=== PATIENT | male | born 1955 | race Caucasian/White ===

== ENCOUNTER 2022-02-13 18:56 | Inpatient (IN) | payer BC ==
[~2022-02-13] VITALS: Ht 180.3 cm; Wt 109.0 kg
[2022-02-13 19:01] VITALS: BP_SYST 150
--- NOTE | 2022-02-13 19:01 | NUR ---
Placed in room 04 . Placed on night monitor, blood pressure machine and pulse oximeter. To gown for exam. Side rails up. Report given to VIVIANE WASHINGTON
--- NOTE | 2022-02-13 19:04 | NUR ---
EKG being done at bedside.
--- NOTE | 2022-02-13 19:06 | NUR ---
PT CAME FROM HOME WITH C/O PALPITATIONS. PT DENIES CHEST PAIN, STATES THAT HE FEELS A FATIGUE FEELING IN THE MIDDLE OF HIS CHEST. STATES THAT WITH MOVEMENT HE FEELS THE FATIGUE AND IT STOPS WITH REST. PT STATES HISTORY OF TACHYCARDIA. A&O X 4, AMBULATORY, AND FOLLOWS COMMANDS. SAFETY PRECAUTIONS ARE IN PLACE.
--- NOTE | 2022-02-13 19:06 | NUR ---
is at bedside with patient.
[2022-02-13] MEDS ORDERED: LOSA25TA3 PO (19:18)
[2022-02-13] MEDS ORDERED: ROSU20TA2 PO (19:18)
[2022-02-13] MEDS ORDERED: ATEN-41 PO (19:18)
--- NOTE | 2022-02-13 20:04 | NUR ---
X-ray being done at bedside.
[2022-02-13 20:18] LABS: BASOPHILS # (AUTO) 0.2 K/uL (0.0-0.2); BASOPHILS % (AUTO) 1.7 % (0.0-2.0); EOSINOPHILS # (AUTO) 0.2 K/uL (0.0-0.4); HEMATOCRIT 44.9 % (36-54); HEMOGLOBIN 14.6 g/dL (14.0-18.0); LYMPHOCYTES # (AUTO) 1.3 K/uL (1.0-5.5); LYMPHOCYTES % (AUTO) 12.5 % (20.5-51.5); MEAN CORPUSCULAR HEMOGLOBIN 25 pg (27-31); MEAN CORPUSCULAR HGB CONC 33 % (32-36); MEAN CORPUSCULAR VOLUME 77 fL (79.0-98.0); MONOCYTES # (AUTO) 1.1 K/uL (0.0-1.0); MONOCYTES % (AUTO) 11.1 % (1.7-9.3); NEUTROPHILS # (AUTO) 7.3 K/uL (1.8-7.7); NEUTROPHILS % (AUTO) 72.7 % (40.0-70.0); PLATELET COUNT (AUTO) 231 K/uL (130-430); RED BLOOD CELL COUNT(AUTO) 5.81 MIL/uL (4.2-6.2); RED CELL DISTRIBUTION WIDTH 18.4 % (9.0-15.0)
[2022-02-13 20:22] LABS: ANION GAP 7 (5-15); CALCIUM 8.8 mg/dL (8.4-11.0); CHLORIDE 102 mmol/L (98-107); CREATININE 1.12 mg/dL (0.55-1.30); GLUCOSE 138 mg/dL (70-99); POTASSIUM 4.2 mmol/L (3.5-5.1); SODIUM SERUM 141 mmol/L (136-145); UREA NITROGEN, BLOOD 21 mg/dL (8-21)
[2022-02-13 20:23] LABS: GFR AFRICAN AMERICAN 85 mL/min (>90)
[2022-02-13 20:37] LABS: ALANINE AMINOTRANSFERASE 30 U/L (12-78); ALBUMIN 3.3 g/dL (3.4-4.8); ASPARTATE AMINOTRANSFERASE 17 U/L (10-37); FREE T4 (FREE THYROXINE) 0.9 ng/dl (0.8-1.5); THYROID STIMULATING HORMONE 1.61 uIu/mL (0.36-3.74)
[2022-02-13 20:49] LABS: TOTAL BILIRUBIN 0.3 mg/dL (0.0-1.0)
--- NOTE | 2022-02-13 21:10 | NUR ---
Medication reconciliation completed with information provided by PATIENT. Any prior medication reconciliation on file was reviewed and corrected.
--- NOTE | 2022-02-13 21:13 | NUR ---
PATIENT STATES HE IS FULL CODE
--- NOTE | 2022-02-13 22:26 | NUR ---
Admit bed requested Patient will be admitted to care of . Admitted to TELEMETRY unit. Diagnosis ATRIAL FIBRILLATION Inpatient (Yes or No) YES Observation (Yes or No) NO Orientation concerns or request close to nursing station (Yes or No) NO Covid Status NEG On vent or bipap N/A Isolation requirements N/A Needs a sitter N From Home (Yes or if No enter name of facility) HOME Requires Dialysis (Yes or No) NO Med Rec Completed (Yes of No) YES
--- NOTE | 2022-02-14 00:07 | NUR ---
Patient will be admitted to care of DR HALLMAN. Admitted to unit. Will go to room . Belongings list completed. Complete and up to date summary report printed. SBAR report to be given at bedside with opportunity for questions.
[2022-02-14 00:15] VITALS: BP_SYST 121
[2022-02-14] MEDS ORDERED: MELATONIN 5 MG TABLET PO ONE ×2 (02:00→02:17)
[2022-02-14 07:30] VITALS: BP_SYST 122
--- NOTE | 2022-02-14 07:30 | NUR ---
Opening Notes Patient is sitting up in bed. A/O x4. No apparent distress noted. Vitals as charted. Breakfast tray provided. Call light within reach. Safety and fall precautions in place. All needs met.
--- NOTE | 2022-02-14 10:00 | NUR ---
Note Patient is concerned about his blood pressure medication. I told him I would speak with his doctor.
--- NOTE | 2022-02-14 10:15 | NUR ---
Note Mentioned to Dr. Marrero patient's concern over his BP medication. Dr. Marrero will complete rounds with patient.
[2022-02-14] MEDS ORDERED: HYDROcodone/ACETAMIN 5-325 MG TAB (NORCO/ VICODIN) PO PRN (11:00)
[2022-02-14] MEDS ORDERED: HYDROcodone/ACETAMIN 10-325 MG TAB PO PRN (11:00)
[2022-02-14] MEDS ORDERED: LORazepam 2 MG/ML VIAL IVP PRN (11:00)
[2022-02-14] MEDS ORDERED: NALOXONE HCL 0.4 MG/ML AMP (NARCAN) IVP PRN ×2 (11:00)
[2022-02-14] MEDS ORDERED: ACETAMINOPHEN 325 MG TABLET PO PRN (11:00)
[2022-02-14] MEDS ORDERED: ONDANSETRON HCL 4 MG/2 ML VIAL IVP PRN (11:00)
[2022-02-14] MEDS ORDERED: LOSARTAN POTASSIUM 25 MG TABLET PO ONE (11:15)
[2022-02-14] MEDS ORDERED: ATENOLOL 25 MG TABLET(TENORMIN) PO ONE (11:30)
[2022-02-14 12:00] VITALS: BP_SYST 120
[2022-02-14] MEDS: NORMAL SALINE 5 ML DISP.SYRIN IVF SCH ×2 (13:12→21:29)
[2022-02-14] MEDS ORDERED: NORMAL SALINE 5 ML DISP.SYRIN IVF SCH (14:00)
[2022-02-14 16:00] VITALS: BP_SYST 127
--- NOTE | 2022-02-14 18:45 | NUR ---
Paged Dr. Benito Marrero Paged Dr. Marrero, patient is requesting sleep medication other than melatonin.
--- NOTE | 2022-02-14 18:50 | NUR ---
Note Received order from dr. sanchez as documented for patient's sleep medication.
[2022-02-14] MEDS ORDERED: traZODone HCL 50 MG TABLET (DESYREL) PO PRN (19:00)
--- NOTE | 2022-02-14 19:02 | NUR ---
Closing Note Patient is sitting up in bed awake. No apparent distress noted. Call light within reach. Safety and fall precautions in place. All needs jaspal. Will endorse care to slot shift supervisor RN.
[2022-02-14 20:00] VITALS: BP_SYST 128
[2022-02-14] MEDS ORDERED: ATORVASTATIN 20 MG TABLET PO SCH (21:00)
[2022-02-14] MEDS ORDERED: MELATONIN 5 MG TABLET PO SCH (21:00)
[2022-02-15 01:00] VITALS: BP_SYST 135
--- NOTE | 2022-02-15 01:56 | NUR ---
Desyrel 50 MG po given for sleep aide & helpful per patient Request .
--- NOTE | 2022-02-15 01:57 | NUR ---
HOURLY rounding patient resting using the urinal as needed call calle given to patient chest movement symmetrical unlabored .
[2022-02-15] MEDS: NORMAL SALINE 5 ML DISP.SYRIN IVF SCH (05:44)
[2022-02-15 06:26] LABS: BASOPHILS # (AUTO) 0.1 K/uL (0.0-0.2); BASOPHILS % (AUTO) 0.8 % (0.0-2.0); EOSINOPHILS # (AUTO) 0.3 K/uL (0.0-0.4); EOSINOPHILS % (AUTO) 3.3 % (0.0-4.0); HEMATOCRIT 44.3 % (36-54); LYMPHOCYTES % (AUTO) 25.2 % (20.5-51.5); MEAN CORPUSCULAR HEMOGLOBIN 25 pg (27-31); MEAN CORPUSCULAR HGB CONC 32 % (32-36); MEAN CORPUSCULAR VOLUME 78 fL (79.0-98.0); MONOCYTES # (AUTO) 1.2 K/uL (0.0-1.0); MONOCYTES % (AUTO) 15.8 % (1.7-9.3); NEUTROPHILS # (AUTO) 4.3 K/uL (1.8-7.7); NEUTROPHILS % (AUTO) 54.9 % (40.0-70.0); PLATELET COUNT (AUTO) 239 K/uL (130-430); RED BLOOD CELL COUNT(AUTO) 5.71 MIL/uL (4.2-6.2); WHITE BLOOD COUNT (AUTO) 7.8 K/uL (4.8-10.8)
[2022-02-15 06:49] LABS: ALBUMIN 3.1 g/dL (3.4-4.8); CALCIUM 8.3 mg/dL (8.4-11.0); CREATININE 0.99 mg/dL (0.55-1.30); PHOSPHORUS 3.7 mg/dL (2.7-4.5); POTASSIUM 3.9 mmol/L (3.5-5.1); TOTAL BILIRUBIN 0.1 mg/dL (0.0-1.0)
--- NOTE | 2022-02-15 07:00 | NUR ---
OPENING NOTE RECEIVED SBAR BY NIGHT RN, PATIENT IN BED, AWAKE, ALERT, ORIENTED X4. IV LEFT FOREARM IS SL.
[2022-02-15 08:22] VITALS: BP_SYST 135
--- NOTE | 2022-02-15 08:30 | NUR ---
CLEARED BY CARDIOLOGY SPOKE TO DR RUDDY HALLMAN AND CLEARED THE PATIENT TO GO HOME. SAW PATIENT LAST NIGHT.
[2022-02-15] MEDS ORDERED: LOSARTAN POTASSIUM 25 MG TABLET PO SCH (09:00)
[2022-02-15] MEDS ORDERED: ATENOLOL 25 MG TABLET(TENORMIN) PO SCH (09:00)
[2022-02-15 10:50] VITALS: BP_SYST 127; BP_SYST 135
[2022-02-15 11:07] VITALS: BP_SYST 127
--- NOTE | 2022-02-15 12:41 | NUR ---
D/C Patient Patient given medication reconciliation form and D/C instructions. Exit Care provided. Patient verbalized understanding. MD discussed with patient the results and treatment provided. Ambulatory with steady gait for discharge to home. Patient in stable condition, ID band removed. IV catheter removed, intact and dressing applied, no active bleeding. Rx of given. Patient educated on pain management. All belongings sent with patient. Patient steady to walk, accompanied outside the lobby.
== END 2022-02-15 12:41 | disposition home health service (06) | DRG 309 ==
LOC: SED 18:56 → STU 22:25
PROVIDERS: ADMIT Preventive Medicine Preventive Medicine/Occupational Environmental Medicine; ATTEND Preventive Medicine Preventive Medicine/Occupational Environmental Medicine
DX: I48.91 Unspecified atrial fibrillation (principal); E44.0 Moderate protein-calorie malnutrition; K21.9 Gastro-esophageal reflux disease without esophagitis; E78.5 Hyperlipidemia, unspecified; E83.52 Hypercalcemia; E88.09 Other disorders of plasma-protein metabolism, not elsewhere classified; R73.9 Hyperglycemia, unspecified; Z20.822 Contact with and (suspected) exposure to COVID-19
CPT/HCPCS: 36415; 71045; 80053; 83735; 83880; 84100; 84439; 84443; 84484; 85025; 93005; 93306; 99285; G0378

== ENCOUNTER 2023-06-18 08:54 | Inpatient (IN) | payer BC, OTHER ==
[~2023-06-18] VITALS: Ht 180.3 cm; Wt 104.3 kg
[~2023-06-18 08:54] MED LIST: ATEN-41 PO
[2023-06-18 08:57] VITALS: BP_SYST 128; PULSE 59; RESP 18; TEMP 98.3; O2SAT 97
[2023-06-18] MEDS ORDERED: dilTIAZem HCL IVP 5 MG/ML VIAL IVP ONE (09:15)
[2023-06-18] MEDS ORDERED: DILTIAZEM HCL 60 MG TABLET PO ONE (09:15)
[2023-06-18 09:29] LABS: BASOPHILS % (AUTO) 0.6 % (0.0-2.0); EOSINOPHILS # (AUTO) 0.1 K/uL (0.0-0.4); EOSINOPHILS % (AUTO) 1.3 % (0.0-4.0); HEMATOCRIT 49.6 % (36-54); LYMPHOCYTES # (AUTO) 1.2 K/uL (1.0-5.5); LYMPHOCYTES % (AUTO) 16.5 % (20.5-51.5); MEAN CORPUSCULAR HEMOGLOBIN 24 pg (27-31); MEAN CORPUSCULAR HGB CONC 30 % (32-36); MEAN CORPUSCULAR VOLUME 78 fL (79.0-98.0); MONOCYTES # (AUTO) 0.9 K/uL (0.0-1.0); MONOCYTES % (AUTO) 13.3 % (1.7-9.3); NEUTROPHILS # (AUTO) 4.8 K/uL (1.8-7.7); NEUTROPHILS % (AUTO) 68.3 % (40.0-70.0); PLATELET COUNT (AUTO) 245 K/uL (130-430); RED BLOOD CELL COUNT(AUTO) 6.35 MIL/uL (4.2-6.2); WHITE BLOOD COUNT (AUTO) 7.1 K/uL (4.8-10.8)
[2023-06-18 09:45] LABS: PROTHROMBIN TIME 10.8 SECS (9.5-12.5)
[2023-06-18 09:47] LABS: ANION GAP 10 (5-15); CALCIUM 8.5 mg/dL (8.4-11.0); CARBON DIOXIDE 28 mmol/L (23-29); CHLORIDE 101 mmol/L (98-107); CREATININE 1.02 mg/dL (0.55-1.30); GFR AFRICAN AMERICAN 94 mL/min (>90); GLUCOSE 199 mg/dL (74-106); POTASSIUM 3.8 mmol/L (3.5-5.1); SODIUM SERUM 139 mmol/L (136-145); UREA NITROGEN, BLOOD 16 mg/dL (8-21)
[2023-06-18 09:50] LABS: GFR NON AFRICAN-AMERICAN 78 mL/min (>90)
[2023-06-18 09:54] LABS: ALANINE AMINOTRANSFERASE 26 U/L (12-78); ALBUMIN 3.4 g/dL (3.4-4.8); ASPARTATE AMINOTRANSFERASE 17 U/L (10-37); TOTAL BILIRUBIN 0.6 mg/dL (0.0-1.0); TOTAL PROTEIN, SERUM 7.2 g/dL (6.4-8.3)
[2023-06-18 10:26] LABS: ANISOCYTOSIS 1+; HYPOCHROMASIA 1+; TARGET CELLS FEW
[2023-06-18] MEDS ORDERED: LIP20 PO (11:00)
[2023-06-18] MEDS ORDERED: ACETAMINOPHEN 325 MG TABLET PO PRN (13:15)
[2023-06-18] MEDS ORDERED: NALOXONE HCL 0.4 MG/ML AMP (NARCAN) IVP PRN ×2 (13:15)
[2023-06-18] MEDS ORDERED: LORazepam 2 MG/ML VIAL IVP PRN (13:15)
[2023-06-18] MEDS ORDERED: HYDROcodone/ACETAMIN 5-325 MG TAB (NORCO/ VICODIN) PO PRN (13:15)
[2023-06-18] MEDS ORDERED: ONDANSETRON HCL 4 MG/2 ML VIAL IVP PRN (13:15)
[2023-06-18] MEDS ORDERED: HYDROcodone/ACETAMIN 10-325 MG TAB PO PRN (13:15)
[2023-06-18] MEDS: NORMAL SALINE 5 ML DISP.SYRIN IVF SCH ×2 (14:00→23:20)
[2023-06-18 18:50] VITALS: BP_SYST 103; PULSE 68; RESP 16; TEMP 98.4
[2023-06-18 20:00] VITALS: O2SAT 98
[2023-06-18 20:21] VITALS: BP_SYST 103; PULSE 78; RESP 16; TEMP 98; O2SAT 98
[2023-06-18] MEDS ORDERED: SOTALOL (AF) 80 MG TABLET PO SCH ×2 (21:00)
[2023-06-18] MEDS ORDERED: ATORVASTATIN 20 MG TABLET PO SCH (21:00)
[2023-06-18] MEDS: SOTALOL (AF) 80 MG TABLET PO SCH (21:55)
[2023-06-19] VITALS (8 sets, daily range): BP systolic 102–131; PULSE 70–83; RESP 16–18; TEMP 97.9–98.9; O2SAT 96–99
[2023-06-19 05:06] LABS: BASOPHILS # (AUTO) 0.1 K/uL (0.0-0.2); BASOPHILS % (AUTO) 0.5 % (0.0-2.0); EOSINOPHILS # (AUTO) 0.1 K/uL (0.0-0.4); EOSINOPHILS % (AUTO) 1.4 % (0.0-4.0); HEMATOCRIT 45.4 % (36-54); HEMOGLOBIN 14.1 g/dL (14.0-18.0); LYMPHOCYTES # (AUTO) 1.8 K/uL (1.0-5.5); LYMPHOCYTES % (AUTO) 17.7 % (20.5-51.5); MEAN CORPUSCULAR HEMOGLOBIN 24 pg (27-31); MEAN CORPUSCULAR HGB CONC 31 % (32-36); MEAN CORPUSCULAR VOLUME 78 fL (79.0-98.0); MONOCYTES # (AUTO) 1.2 K/uL (0.0-1.0); NEUTROPHILS # (AUTO) 7.1 K/uL (1.8-7.7); NEUTROPHILS % (AUTO) 68.4 % (40.0-70.0); PLATELET COUNT (AUTO) 236 K/uL (130-430); RED BLOOD CELL COUNT(AUTO) 5.84 MIL/uL (4.2-6.2); RED CELL DISTRIBUTION WIDTH 19.1 % (9.0-15.0); WHITE BLOOD COUNT (AUTO) 10.4 K/uL (4.8-10.8)
[2023-06-19 05:21] LABS: CALCIUM 8.4 mg/dL (8.4-11.0); CREATININE 0.94 mg/dL (0.55-1.30); POTASSIUM 3.8 mmol/L (3.5-5.1)
[2023-06-19] MEDS: NORMAL SALINE 5 ML DISP.SYRIN IVF SCH ×3 (06:35→21:45)
[2023-06-19] MEDS ORDERED: ATENOLOL 25 MG TABLET(TENORMIN) PO SCH (09:00)
[2023-06-19] MEDS: SOTALOL (AF) 80 MG TABLET PO SCH ×2 (09:16→22:32)
[2023-06-19] MEDS ORDERED: ATORVASTATIN 20 MG TABLET PO ONE (09:45)
[2023-06-19] MEDS ORDERED: ASPI-1393 PO (14:25)
[2023-06-19] MEDS ORDERED: BET(AF)80 PO ×2 (14:25)
[2023-06-19] MEDS ORDERED: AMIODARONE HCL 150 MG in D5W 100 ML IV ONE (19:00)
[2023-06-19] MEDS: AMIODARONE HCL 450 MG in D5W 241 ML IV SCH (21:44)
[2023-06-19] MEDS ORDERED: traZODone HCL 50 MG TABLET (DESYREL) PO PRN (23:00)
[2023-06-20 01:06] VITALS: BP_SYST 100; PULSE 62; RESP 16; TEMP 97.5; O2SAT 97
[2023-06-20] MEDS: NORMAL SALINE 5 ML DISP.SYRIN IVF SCH ×3 (05:33→20:17)
[2023-06-20 05:52] LABS: BASOPHILS # (AUTO) 0.1 K/uL (0.0-0.2); BASOPHILS % (AUTO) 0.6 % (0.0-2.0); EOSINOPHILS # (AUTO) 0.2 K/uL (0.0-0.4); EOSINOPHILS % (AUTO) 1.6 % (0.0-4.0); HEMATOCRIT 46.2 % (36-54); LYMPHOCYTES # (AUTO) 1.9 K/uL (1.0-5.5); LYMPHOCYTES % (AUTO) 18.2 % (20.5-51.5); MEAN CORPUSCULAR HEMOGLOBIN 24 pg (27-31); MEAN CORPUSCULAR HGB CONC 30 % (32-36); MEAN CORPUSCULAR VOLUME 78 fL (79.0-98.0); MONOCYTES # (AUTO) 1.4 K/uL (0.0-1.0); MONOCYTES % (AUTO) 13.7 % (1.7-9.3); NEUTROPHILS # (AUTO) 6.8 K/uL (1.8-7.7); NEUTROPHILS % (AUTO) 65.9 % (40.0-70.0); PLATELET COUNT (AUTO) 241 K/uL (130-430); RED CELL DISTRIBUTION WIDTH 19.1 % (9.0-15.0); WHITE BLOOD COUNT (AUTO) 10.3 K/uL (4.8-10.8)
[2023-06-20 06:26] LABS: ALBUMIN 3.1 g/dL (3.4-4.8); CALCIUM 7.5 mg/dL (8.4-11.0); CREATININE 0.86 mg/dL (0.55-1.30); POTASSIUM 3.7 mmol/L (3.5-5.1); TOTAL BILIRUBIN 0.4 mg/dL (0.0-1.0); TOTAL PROTEIN, SERUM 6.6 g/dL (6.4-8.3)
[2023-06-20 06:50] VITALS: BP_SYST 114; PULSE 64; RESP 18
[2023-06-20 08:00] VITALS: BP_SYST 108; PULSE 79; RESP 17; TEMP 98.2; O2SAT 96
[2023-06-20] MEDS: ATORVASTATIN 20 MG TABLET PO SCH (08:38)
[2023-06-20] MEDS: AMIODARONE HCL 450 MG in D5W 241 ML IV SCH (09:13)
[2023-06-20] MEDS ORDERED: SOTALOL (AF) 80 MG TABLET PO ONE (10:15)
[2023-06-20 11:51] VITALS: BP_SYST 114; PULSE 71; RESP 17; TEMP 98.8; O2SAT 98
[2023-06-20] MEDS ORDERED: CALCIUM GLUCONATE 2 GM in NS 100 ML IV ONE (12:00)
[2023-06-20] MEDS: ACETAMINOPHEN 325 MG TABLET PO PRN (17:16)
[2023-06-20 17:30] VITALS: BP_SYST 122; PULSE 91; RESP 18; TEMP 98.5; O2SAT 99
[2023-06-20 20:00] VITALS: BP_SYST 126; PULSE 77; RESP 18; TEMP 97.8; O2SAT 98
[2023-06-20] MEDS ORDERED: SOTALOL (AF) 80 MG TABLET PO SCH (21:00)
[2023-06-21 00:58] VITALS: BP_SYST 108; PULSE 80; RESP 18; TEMP 97.7; O2SAT 98
[2023-06-21 05:04] LABS: BASOPHILS # (AUTO) 0.1 K/uL (0.0-0.2); BASOPHILS % (AUTO) 0.4 % (0.0-2.0); EOSINOPHILS # (AUTO) 0.1 K/uL (0.0-0.4); EOSINOPHILS % (AUTO) 0.8 % (0.0-4.0); HEMATOCRIT 46.3 % (36-54); HEMOGLOBIN 14.1 g/dL (14.0-18.0); LYMPHOCYTES # (AUTO) 1.4 K/uL (1.0-5.5); LYMPHOCYTES % (AUTO) 10.1 % (20.5-51.5); MEAN CORPUSCULAR HEMOGLOBIN 24 pg (27-31); MEAN CORPUSCULAR HGB CONC 31 % (32-36); MEAN CORPUSCULAR VOLUME 78 fL (79.0-98.0); MONOCYTES # (AUTO) 1.9 K/uL (0.0-1.0); MONOCYTES % (AUTO) 13.4 % (1.7-9.3); NEUTROPHILS # (AUTO) 10.4 K/uL (1.8-7.7); NEUTROPHILS % (AUTO) 75.3 % (40.0-70.0); PLATELET COUNT (AUTO) 231 K/uL (130-430); RED BLOOD CELL COUNT(AUTO) 5.92 MIL/uL (4.2-6.2); WHITE BLOOD COUNT (AUTO) 13.8 K/uL (4.8-10.8)
[2023-06-21 05:14] LABS: CALCIUM 7.9 mg/dL (8.4-11.0); POTASSIUM 3.8 mmol/L (3.5-5.1)
[2023-06-21] MEDS: NORMAL SALINE 5 ML DISP.SYRIN IVF SCH (06:00)
[2023-06-21] MEDS ORDERED: ATENOLOL 50 MG TABLET (TENORMIN) PO ONE (06:20)
[2023-06-21 08:00] VITALS: O2SAT 96
[2023-06-21 08:15] VITALS: BP_SYST 105; PULSE 73; RESP 18; TEMP 98.4; O2SAT 96
[2023-06-21] MEDS: ATORVASTATIN 20 MG TABLET PO SCH (08:18)
[2023-06-21] MEDS: ACETAMINOPHEN 325 MG TABLET PO PRN (08:18)
[2023-06-21 10:04] VITALS: BP_SYST 108; PULSE 68; RESP 18; TEMP 97.6; O2SAT 99
[2023-06-21] MEDS ORDERED: ATEN-167 PO ×3 (10:43→10:50)
[2023-06-21 11:14] VITALS: BP_SYST 108; PULSE 68; RESP 18; TEMP 97.6; O2SAT 99
[2023-06-21] MEDS ORDERED: CALCIUM 500 MG/TAB PO SCH (21:00)
[2023-06-21] MEDS ORDERED: ATENOLOL 50 MG TABLET (TENORMIN) PO SCH ×2 (21:00)
[2023-06-21] MEDS ORDERED: METOPROLOL SUCCINATE 50 MG TAB.SR.24H (TOPROL XL) PO SCH (21:00)
[2023-07-11] MEDS ORDERED: ATENOLOL 50 MG TABLET (TENORMIN) PO SCH (21:00)
== END 2023-06-21 12:30 | disposition home or self-care (01) | DRG 309 ==
LOC: SED 08:54 → STU 11:16
PROVIDERS: ADMIT Preventive Medicine Preventive Medicine/Occupational Environmental Medicine; ATTEND Preventive Medicine Preventive Medicine/Occupational Environmental Medicine
DX: I48.91 Unspecified atrial fibrillation (principal); E44.1 Mild protein-calorie malnutrition; R73.9 Hyperglycemia, unspecified; E83.51 Hypocalcemia; D72.829 Elevated white blood cell count, unspecified; I10 Essential (primary) hypertension; Z79.82 Long term (current) use of aspirin; Z79.899 Other long term (current) drug therapy; Z68.32 Body mass index [BMI] 32.0-32.9, adult
CPT/HCPCS: 36415; 71045; 80048; 80053; 83880; 84484; 85025; 85610-TC; 85730-TC; 93005; 93306; 99285; G0378; J0282; J0610; J3490; J7060

== ENCOUNTER 2024-04-13 10:48 | Emergency (ER) | payer OTHER ==
[~2024-04-13] VITALS: Ht 180.3 cm; Wt 102.1 kg
[~2024-04-13 10:48] MED LIST changes: +ASPI-1393 PO; +ATEN-167 PO; -ATEN-41 PO; +LIP20 PO
[2024-04-13 10:55] VITALS: BP_SYST 133; PULSE 94; RESP 18; TEMP 97; O2SAT 97
[2024-04-13 11:24] LABS: BASOPHILS % (AUTO) 0.5 % (0.0-2.0); EOSINOPHILS # (AUTO) 0.1 K/uL (0.0-0.4); EOSINOPHILS % (AUTO) 0.7 % (0.0-4.0); HEMATOCRIT 54.1 % (36-54); HEMOGLOBIN 17.2 g/dL (14.0-18.0); LYMPHOCYTES # (AUTO) 1.3 K/uL (1.0-5.5); LYMPHOCYTES % (AUTO) 13.6 % (20.5-51.5); MEAN CORPUSCULAR HEMOGLOBIN 27 pg (27-31); MEAN CORPUSCULAR HGB CONC 32 % (32-36); MEAN CORPUSCULAR VOLUME 85 fL (79.0-98.0); MONOCYTES # (AUTO) 1.1 K/uL (0.0-1.0); NEUTROPHILS % (AUTO) 73.2 % (40.0-70.0); PLATELET COUNT (AUTO) 212 K/uL (130-430); RED CELL DISTRIBUTION WIDTH 20.2 % (9.0-15.0); WHITE BLOOD COUNT (AUTO) 9.6 K/uL (4.8-10.8)
[2024-04-13 11:41] LABS: ALANINE AMINOTRANSFERASE 23 U/L (12-78); ALBUMIN 3.4 g/dL (3.4-4.8); ANION GAP 4 (5-15); ASPARTATE AMINOTRANSFERASE 18 U/L (10-37); CALCIUM 8.7 mg/dL (8.4-11.0); CARBON DIOXIDE 32 mmol/L (23-29); CHLORIDE 103 mmol/L (98-107); CREATININE 1.04 mg/dL (0.55-1.30); GFR AFRICAN AMERICAN 92 mL/min (>90); GLUCOSE 155 mg/dL (74-106); POTASSIUM 4.1 mmol/L (3.5-5.1); SODIUM SERUM 139 mmol/L (136-145); TOTAL BILIRUBIN 0.5 mg/dL (0.0-1.0); UREA NITROGEN, BLOOD 17 mg/dL (8-21)
[2024-04-13 11:49] LABS: LIPASE 64 U/L (16-77)
[2024-04-13] MEDS ORDERED: iohexoL 350 mgI/mL, 100 ML INFUS..BTL IV ONE (11:54)
[2024-04-13 11:56] LABS: GFR NON AFRICAN-AMERICAN 76 mL/min (>90)
[2024-04-13 13:06] VITALS: BP_SYST 133; PULSE 94; RESP 18; TEMP 97; O2SAT 97
== END 2024-04-13 13:07 | disposition home or self-care (01) ==
LOC: SED 10:48
DX: R00.2 Palpitations (principal); R20.2 Paresthesia of skin; R10.31 Right lower quadrant pain; R06.00 Dyspnea, unspecified; Z79.899 Other long term (current) drug therapy; Z79.82 Long term (current) use of aspirin
CPT/HCPCS: 99285; 71275; 80053; 83690; 85025; 84484; 36415; 93005; 74175; Q9967